=== PATIENT | male | born 1985 | race Caucasian/White ===

== ENCOUNTER 2019-02-28 09:26 | Emergency (ER) | payer BC, SELFPAY ==
[2019-02-28 10:01] LABS: #Basophils 0.1 thou/uL (0.0-0.2); #Eosinphils 0.2 thou/uL (0.0-0.7); #Lymphocytes 2.4 thou/uL (1.20-3.40); #Monocytes 0.4 thou/uL (0.11-0.59); #Neutrophils 3.4 thou/uL (1.40-6.50); %Basophils 0.9 % (0.0-1.0); %Lymphocytes 36.8 % (21.0-51.0); %Monocytes 6.4 % (0.0-10.0); %Neutrophils 52.9 % (42.0-75.0); Hemoglobin 15.7 g/dL (14.0-18.0); Mean Corpuscular HGB CONC 32.6 g/dL (32.0-36.0); Mean Corpuscular Hemoglobin 29.4 pg (27.0-31.0); Mean Corpuscular Volume 90.2 fL (78.0-98.0); Mean Platelet Volume 7.5 fL (7.4-10.4); Platelet Count 172 thou/uL (130-400); RBC Distribution Width 11.7 % (11.5-14.5); Red Blood Cell (RBC) Count 5.34 mill/uL (4.70-6.10); White Blood Cell (WBC) Count 6.5 thou/uL (4.8-10.8)
[2019-02-28 10:17] LABS: ALT (SGPT) 183 U/L (8-55); AST (SGOT) 108 U/L (5-34); Albumin 4.3 g/dL (3.5-5.0); Alkaline Phosphatase 64 U/L (40-150); Anion Gap 15 mmol/L (10-20); BUN (Urea Nitrogen) 14 mg/dL (8.9-20.6); Bilirubin, Total 0.7 mg/dL (0.2-1.2); CK (CPK) 350 U/L (30-200); Calc. Creatinine Clearance 0 mL/min (70-130); Calcium 9.7 mg/dL (7.8-10.44); Carbon Dioxide 24 mmol/L (22-29); Chloride 105 mmol/L (98-107); Estimated GFR-MDRD 79; Globulin 3.1 g/dL (2.4-3.5); Glucose 98 mg/dL (70-105); Potassium 3.9 mmol/L (3.5-5.1); Protein, Total 7.4 g/dL (6.0-8.3); Sodium 140 mmol/L (136-145)
--- NOTE | 2019-02-28 15:01 | RAD ---
PORTABLE CHEST: Date: 02/28/19 HISTORY: Chest pain. FINDINGS: Lung win are clear. Heart and mediastinum unremarkable. Vasculature normal. IMPRESSION: Unremarkable chest. POS: C
== END 2019-02-28 13:21 | disposition home or self-care (01) ==
LOC: BURERS 09:26
DX: R07.89 Other chest pain (principal); F17.210 Nicotine dependence, cigarettes, uncomplicated
CPT/HCPCS: 71045; 80053; 82550; 84484; 85025; 93005; 96360

== ENCOUNTER 2019-07-17 12:03 | Emergency (ER) | payer BC ==
[2019-07-17] MEDS ORDERED: Ondansetron ODT 4 MG TAB ONE (12:20)
[2019-07-17] MEDS ORDERED: Oseltamivir 75 MG CAP ONE (12:20)
== END 2019-07-17 12:25 | disposition home or self-care (01) ==
LOC: BURERS 12:03
DX: J11.1 Influenza due to unidentified influenza virus with other respiratory manifestations (principal); F17.210 Nicotine dependence, cigarettes, uncomplicated
CPT/HCPCS: 99283; Q0162

== ENCOUNTER 2019-09-09 12:09 | Emergency (ER) | payer BC ==
[2019-09-09] MEDS ORDERED: cefTRIAXone\\ROCEPHIN 500 MG VIAL ONE (13:04)
[2019-09-09] MEDS ORDERED: Azithromycin 250 MG TAB ONE (13:04)
[2019-09-11 23:03] LABS: Chlam.trachomatis by PCR,Urine Not Detected (NotDetected)
== END 2019-09-09 13:12 | disposition home or self-care (01) ==
LOC: BURERS 12:09
DX: N34.2 Other urethritis (principal); F17.210 Nicotine dependence, cigarettes, uncomplicated
CPT/HCPCS: 87491; 87591; 96372; 99283; J0696

== ENCOUNTER 2020-06-27 10:25 | Emergency (ER) | payer BC, SELFPAY ==
[2020-06-27 12:42] LABS: #Basophils 0.1 thou/uL (0.0-0.2); #Eosinphils 0.3 thou/uL (0.0-0.7); #Monocytes 0.5 thou/uL (0.11-0.59); #Neutrophils 5.1 thou/uL (1.40-6.50); %Basophils 0.9 % (0.0-1.0); %Lymphocytes 25.1 % (21.0-51.0); %Monocytes 6.2 % (0.0-10.0); %Neutrophils 63.8 % (42.0-75.0); Hemoglobin 16.5 g/dL (14.0-18.0); Mean Corpuscular HGB CONC 32.5 g/dL (32.0-36.0); Mean Corpuscular Volume 92.3 fL (78.0-98.0); Mean Platelet Volume 8.7 fL (7.4-10.4); Platelet Count 151 thou/uL (130-400); RBC Distribution Width 12.1 % (11.5-14.5); Red Blood Cell (RBC) Count 5.51 mill/uL (4.70-6.10)
[2020-06-27 12:59] LABS: ALT (SGPT) 165 U/L (8-55); AST (SGOT) 115 U/L (5-34); Albumin 4.3 g/dL (3.5-5.0); Alkaline Phosphatase 51 U/L (40-110); Anion Gap 14 mmol/L (10-20); BUN (Urea Nitrogen) 13 mg/dL (8.9-20.6); Bilirubin, Total 0.9 mg/dL (0.2-1.2); Calc. Creatinine Clearance 0 mL/min (70-130); Calcium 9.3 mg/dL (7.8-10.44); Carbon Dioxide 24 mmol/L (22-29); Chloride 105 mmol/L (98-107); Globulin 3.4 g/dL (2.4-3.5); Glucose 107 mg/dL (70-105); Protein, Total 7.7 g/dL (6.0-8.3); Sodium 139 mmol/L (136-145)
--- NOTE | 2020-06-27 17:54 | RAD ---
CHEST TWO VIEWS: 06/27/20 Comparison is made with a prior exam of 02/28/19. The heart is borderline in size but no different. There is no vascular congestion, edema, or large p leural effusion. At most, there could be a tiny pleural effusion on the right. There is some prominen ce of the interstitial lung markings with some stringy linear infiltrate suggested, particularly on t he right. This is a new finding compared to the prior study. Given the patient's clinical symptoms, i nfection should be considered as an etiology, especially viral. IMPRESSION: Stringy interstitial prominence compared to prior exams. Consider pulmonary infection. POS: HOME
[2020-06-27 23:55] LABS: SARS-CoV-2 MS2 Positive; SARS-CoV-2 N Gene Negative; SARS-CoV-2 S Gene Negative; SARS-CoV-2 by NAA Not Detected (NotDetected); SARS-CoV-2 orf1ab Negative
== END 2020-06-27 15:03 | disposition home or self-care (01) ==
LOC: BURERS 10:25
DX: J12.89 Other viral pneumonia (principal); Z20.828 Contact with and (suspected) exposure to other viral communicable diseases; F17.210 Nicotine dependence, cigarettes, uncomplicated
CPT/HCPCS: 36415; 71046; 80053; 83605; 83880; 84484; 85025; 87635; 87804; 93005; U0003

== ENCOUNTER 2020-08-17 18:33 | Emergency (ER) | payer SELFPAY ==
[2020-08-17 19:29] LABS: ALT (SGPT) 117 U/L (8-55); AST (SGOT) 66 U/L (5-34); Albumin 4.1 g/dL (3.5-5.0); Alkaline Phosphatase 52 U/L (40-110); Anion Gap 15 mmol/L (10-20); BUN (Urea Nitrogen) 17 mg/dL (8.9-20.6); Bilirubin, Total 0.8 mg/dL (0.2-1.2); Calc. Creatinine Clearance 0 mL/min (70-130); Calcium 8.9 mg/dL (7.8-10.44); Carbon Dioxide 23 mmol/L (22-29); Chloride 108 mmol/L (98-107); Globulin 2.7 g/dL (2.4-3.5); Glucose 95 mg/dL (70-105); Potassium 4.4 mmol/L (3.5-5.1); Protein, Total 6.8 g/dL (6.0-8.3); Sodium 142 mmol/L (136-145)
[2020-08-17 19:43] LABS: #Basophils 0.1 thou/uL (0.0-0.2); #Eosinphils 0.2 thou/uL (0.0-0.7); #Lymphocytes 2.4 thou/uL (1.20-3.40); #Monocytes 0.4 thou/uL (0.11-0.59); %Basophils 0.8 % (0.0-1.0); %Eosinophils 2.2 % (0.0-10.0); %Lymphocytes 34.1 % (21.0-51.0); %Monocytes 5.1 % (0.0-10.0); %Neutrophils 57.9 % (42.0-75.0); Hemoglobin 14.9 g/dL (14.0-18.0); Mean Corpuscular HGB CONC 32.6 g/dL (32.0-36.0); Mean Corpuscular Hemoglobin 29.8 pg (27.0-31.0); Mean Corpuscular Volume 91.5 fL (78.0-98.0); Mean Platelet Volume 9.7 fL (7.4-10.4); Platelet Count 132 thou/uL (130-400); RBC Distribution Width 12.4 % (11.5-14.5); Red Blood Cell (RBC) Count 4.98 mill/uL (4.70-6.10); White Blood Cell (WBC) Count 6.9 thou/uL (4.8-10.8)
[2020-08-17 19:47] LABS: CKMB 2.3 ng/mL (0-6.6)
[2020-08-17] MEDS ORDERED: Furosemide 40 MG/4 ML VIAL ONE (20:56)
--- NOTE | 2020-08-18 07:45 | RAD ---
PORTABLE CHEST: Date: 08/17/2020 An AP portable film at 1913 hours is compared with the 06/27/2020 study. The heart has enlarged in the interval. There is prominence of the vasculature suggesting some degree of vascular congestion. Whit it is a little hazier in the right lung base than elsewhere, an infiltr ate is always possible. The patient is turned quite a bit. This may be more an artifact of rotation a nd the prominent vasculature. I do not see large effusions. IMPRESSION: Cardiomegaly and mild vascular congestion. Regarding the right basilar haziness, my understanding is that the patient's labs do not point towards infection, nor his symptoms. His labs do point towards c ardiac etiologies. It would probably be useful to obtain an echocardiogram on this patient. Findings discussed with Dr. Wood at 1955 hours on 08/17/2020. CODE CR. POS: HOME
== END 2020-08-17 22:12 | disposition short-term general hospital (02) ==
LOC: BURERS 18:33
DX: I50.9 Heart failure, unspecified (principal); I51.7 Cardiomegaly; F17.210 Nicotine dependence, cigarettes, uncomplicated
CPT/HCPCS: 36415; 71045; 80053; 82553; 83605; 83880; 84484; 85025; 87040; 93005; 94760; 96374; J1940

== ENCOUNTER 2022-03-09 16:03 | Emergency (ER) | payer MEDICAID, OTHER, SELFPAY ==
[2022-03-09 17:09] LABS: #Basophils 0.1 thou/uL (0.0-0.2); #Eosinphils 0.1 thou/uL (0.0-0.7); #Lymphocytes 2.5 thou/uL (1.20-3.40); #Monocytes 0.5 thou/uL (0.11-0.59); #Neutrophils 6.3 thou/uL (1.40-6.50); %Eosinophils 1.4 % (0.0-10.0); %Monocytes 4.8 % (0.0-10.0); %Neutrophils 66.8 % (42.0-75.0); Mean Corpuscular HGB CONC 32.4 g/dL (32.0-36.0); Mean Corpuscular Hemoglobin 30.6 pg (27.0-31.0); Mean Corpuscular Volume 94.4 fL (78.0-98.0); Mean Platelet Volume 9.3 fL (7.4-10.4); Platelet Count 132 thou/uL (130-400); RBC Distribution Width 12.9 % (11.5-14.5); White Blood Cell (WBC) Count 9.5 thou/uL (4.8-10.8)
[2022-03-09 17:30] LABS: ALT (SGPT) 156 U/L (8-55); AST (SGOT) 109 U/L (5-34); Alkaline Phosphatase 56 U/L (40-110); Anion Gap 15 mmol/L (10-20); BUN (Urea Nitrogen) 11 mg/dL (8.9-20.6); Bilirubin, Total 1.7 mg/dL (0.2-1.2); Calc. Creatinine Clearance 0 mL/min (70-130); Calcium 9.3 mg/dL (7.8-10.44); Carbon Dioxide 19 mmol/L (22-29); Chloride 107 mmol/L (98-107); Estimated GFR 94; Globulin 3.2 g/dL (2.4-3.5); Glucose 92 mg/dL (70-105); Potassium 4.4 mmol/L (3.5-5.1); Protein, Total 7.2 g/dL (6.0-8.3); Sodium 137 mmol/L (136-145)
[2022-03-09] MEDS ORDERED: Furosemide 40 MG/4 ML VIAL ONE (18:00)
[2022-03-09] MEDS ORDERED: Aspirin Chewable 81 MG TAB ONE (18:00)
[2022-03-09 23:19] LABS: CKMB 2.6 ng/mL (0-6.6)
== END 2022-03-09 18:52 | disposition short-term general hospital (02) ==
LOC: BURERS 16:03
DX: I50.9 Heart failure, unspecified (principal); I25.2 Old myocardial infarction; F17.210 Nicotine dependence, cigarettes, uncomplicated
CPT/HCPCS: 36415; 71046; 80053; 82553; 83880; 84484; 85025; 93005; 94760; 96374; J1940